=== PATIENT | male | born 1995 | race Caucasian/White ===

== ENCOUNTER 2019-02-19 17:10 | Emergency (ER) | payer SELFPAY ==
[~2019-02-19] VITALS: Ht 170.2 cm; Wt 59.0 kg
--- NOTE | 2019-02-19 17:12 | NUR ---
Patient to ER bed H1 to gown for evaluation. Side rails up.
--- NOTE | 2019-02-19 17:13 | NUR ---
Pt brought by police justice , [email or web address] , pt presents to ER with L temporal pain and L calf pain , states hit on head, left calf crushed by car door, no open wounds noted, skin pink and warm, cap refill <3.
[2019-02-19 17:15] VITALS: BP_SYST 165
--- NOTE | 2019-02-19 17:20 | NUR ---
Dr Chiang at bedside examining patient
[2019-02-19] MEDS ORDERED: IBUPROFEN 800 MG TABLET PO ONE (18:45)
[2019-02-19 18:48] VITALS: BP_SYST 152
--- NOTE | 2019-02-19 18:49 | NUR ---
Patient given written and verbal discharge instructions and verbalizes understanding. ER MD discussed with patient the results and treatment provided. Patient in stable condition. ID arm band removed. No Rx given. Patient educated on pain management and to follow up with PMD. Pain Scale 2/10 tolerable for patient. Opportunity for questions provided and answered. Medication side effect fact sheet provided.
== END 2019-02-19 18:48 | disposition home or self-care (01) ==
LOC: SED 17:10
DX: S43.402A Unspecified sprain of left shoulder joint, initial encounter (principal); S80.12XA Contusion of left lower leg, initial encounter; S00.83XA Contusion of other part of head, initial encounter; Y04.0XXA Assault by unarmed brawl or fight, initial encounter; Y93.89 Activity, other specified; Y92.89 Other specified places as the place of occurrence of the external cause; Y99.8 Other external cause status
CPT/HCPCS: 70450-TC; 73030; 73590-TC; 99284